=== PATIENT | female | born 1970 | race Caucasian/White ===

== ENCOUNTER 2020-06-30 17:38 | Emergency (ER) | payer BC ==
[~2020-06-30] VITALS: Ht 167.6 cm; Wt 65.8 kg
[2020-06-30 17:56] VITALS: Ht 167.6 cm; Wt 65.8 kg
[2020-06-30 18:54] VITALS: BP 131/87
== END 2020-06-30 18:54 | disposition home or self-care (01) ==
LOC: ED 17:38
DX: M75.21 Bicipital tendinitis, right shoulder (principal)